=== PATIENT | female | born 1970 | race Caucasian/White ===

== ENCOUNTER 2018-09-21 01:26 | Emergency (ER) | payer MEDICAID ==
[2018-09-21 01:27] VITALS: BMI 21.3
[2018-09-21 01:40] VITALS: RESP 18
[2018-09-21] MEDS ORDERED: Aluminum Hydroxide/Magnesium Hydroxide Susp (30 mL) PO STA (02:11)
[2018-09-21] MEDS ORDERED: Sodium Chloride 0.9% 1,000 ML IV ONE (02:11)
[2018-09-21] MEDS ORDERED: Aluminum Hydroxide/Magnesium Hydroxide Susp (30 mL) ONE (02:35)
[2018-09-21 02:37] LABS: BASO % 0.4 % (0.0-2.0); EOS % 0.3 % (0.0-4.0); LYMPH # 0.8 K/uL (1.0-4.3); LYMPH % 7.3 % (20.0-40.0); MEAN CELL VOLUME 88.9 fL (81.0-99.0); MEAN CORPUSCULAR HEMOGLOBIN 29.5 pg (27.0-31.0); MEAN CORPUSCULAR HGB CONC 33.2 g/dL (33.0-37.0); MEAN PLATELET VOLUME 8.7 fL (7.2-11.7); MONO # 0.4 K/uL (0.0-0.8); MONO % 3.7 % (0.0-10.0); NEUT # 10.2 K/uL (1.8-7.0); NEUT % 88.3 % (50.0-75.0); PLATELET COUNT 267 K/uL (130-400); RED CELL DISTRIBUTION WIDTH 14.5 % (11.5-14.5); WHITE BLOOD COUNT 11.5 K/uL (4.8-10.8)
[2018-09-21 02:48] LABS: ALB/GLOB RATIO 1.3 (1.0-2.1); ALBUMIN 4.2 g/dL (3.5-5.0); ALT/SGPT 103 U/L (9-52); AST/SGOT 224 U/L (14-36); BLOOD UREA NITROGEN 20 mg/dL (7-17); CALCIUM 9.3 mg/dl (8.6-10.4); GFR NON-AFRICAN AMERICAN > 60; LIPASE 249 U/L (23-300)
[2018-09-21 02:56] LABS: SQUAMOUS EPITHIAL < 1 /hpf (0-5); URINE BACTERIA RARE (<OCC); URINE BILIRUBIN NEGATIVE (NEGATIVE); URINE BLOOD NEGATIVE (NEGATIVE); URINE CLARITY Clear (Clear); URINE COLOR Yellow (YELLOW); URINE GLUCOSE (UA) NORMAL (Normal); URINE LEUKOCYTE ESTERASE NEG Leu/uL (Negative); URINE PROTEIN NEGATIVE (NEGATIVE)
[2018-09-21 03:01] LABS: HCG,QUALITATIVE URINE NEGATIVE (NEGATIVE)
[2018-09-21] MEDS ORDERED: Lidocaine Hydrochloride 5 ML INJ ONE (03:32)
[2018-09-21 03:47] VITALS: BP 100/64; PULSE 92; TEMP 97.8; O2SAT 100
--- NOTE | 2018-09-21 03:54 | C.PDOC ---
History Of Present Illness 47 year old female presents to the ED for evaluation of moderate abdominal pain which began after eating pizza wand buffalo chicken tonight. Patient reports feeling a sharp pain to her epigastric and right upper quadrant regions. She also reports associated nausea and two episode of vomiting. Patient states her pain has improved from before, but she still has some discomfort and presents to the ED for further evaluation. She denies fever, chills, back pain, urinary symptoms and diarrhea. Time Seen by Provider: 09/21/18 02:11 Chief Complaint (Nursing): Abdominal Pain History Per: Patient History/Exam Limitations: no limitations Onset/Duration Of Symptoms: Hrs Current Symptoms Are (Timing): Still Present Location Of Pain/Discomfort: RUQ, Epigastric Quality Of Discomfort: "Pain" Associated Symptoms: Nausea, Vomiting. denies: Fever, Chills, Diarrhea, Urinary Symptoms Additional History Per: Patient Abnormal Vaginal Bleeding: No Past Medical History Reviewed: Historical Data, Nursing Documentation, Vital Signs Vital Signs: Last Vital Signs Temp 97.8 F 09/21/18 03:46 Pulse 92 H 09/21/18 03:46 Resp 18 09/21/18 03:46 BP 100/64 09/21/18 03:46 Pulse Ox 100 09/21/18 03:46 - Medical History PMH: HTN Denies: Depression Surgical History: Cholecystectomy - [facility] Procedures LAPAROSCOPIC CHOLECYSTECTOMY (02/06/13) Family History: States: Unknown Family Hx - Social History Hx Tobacco Use: No Hx Alcohol Use: No Hx Substance Use: No - Immunization History Hx Tetanus Toxoid Vaccination: No Hx Influenza Vaccination: No Hx Pneumococcal Vaccination: No Review Of Systems Constitutional: Negative for: Fever, Chills Gastrointestinal: Positive for: Nausea, Vomiting, Abdominal Pain (epigastric and right upper quadrant ). Negative for: Diarrhea Genitourinary: Negative for: Dysuria, Frequency, Hematuria Musculoskeletal: Negative for: Back Pain Physical Exam - Physical Exam Appears: Non-toxic, No Acute Distress Skin: Normal Color, Warm, Dry Head: Atraumatic, Normacephalic Eye(s): bilateral: Normal Inspection Oral Mucosa: Moist Neck: Supple Chest: Symmetrical, No Deformity, No Tenderness Cardiovascular: Rhythm Regular, No Murmur Respiratory: Normal Breath Sounds, No Rales, No Rhonchi, No Wheezing Gastrointestinal/Abdominal: Bowel Sounds (normal in all quadrants ), Soft, Tenderness (mild, epigastric ), No Guarding, No Rebound, Other (no tenderness in right upper quadrant, negative Brady's sign ) Extremity: Normal ROM, Capillary Refill (less than 2 seconds ) Neurological/Psych: Normal Speech, Normal Cognition Gait: Steady ED Course And Treatment - Laboratory Results Result Diagrams: 09/21/18 02:33 09/21/18 02:33 Lab Results: Total Bilirubin 0.5 mg/dL (0.2-1.3) 09/21/18 02:33 AST 224 U/L (14-36) H 09/21/18 02:33 ALT 103 U/L (9-52) H 09/21/18 02:33 Alkaline Phosphatase 84 U/L (38-126) 09/21/18 02:33 Total Protein 7.3 g/dL (6.3-8.3) 09/21/18 02:33 Albumin 4.2 g/dL (3.5-5.0) 09/21/18 02:33 Globulin 3.1 gm/dL (2.2-3.9) 09/21/18 02:33 Albumin/Globulin Ratio 1.3 (1.0-2.1) 09/21/18 02:33 Lipase 249 U/L (23-300) 09/21/18 02:33 Urine Color Yellow (YELLOW) 09/21/18 02:33 Urine Clarity Clear (Clear) 09/21/18 02:33 Urine pH 6.0 (5.0-8.0) 09/21/18 02:33 Ur Specific [place] 1.020 (1.003-1.030) 09/21/18 02:33 Urine Protein Negative mg/dL (NEGATIVE) 09/21/18 02:33 Urine Glucose (UA) Normal mg/dL (Normal) 09/21/18 02:33 Urine Ketones Negative mg/dL (NEGATIVE) 09/21/18 02:33 Urine Blood Negative (NEGATIVE) 09/21/18 02:33 Urine Nitrate Negative (NEGATIVE) 09/21/18 02:33 Urine Bilirubin Negative (NEGATIVE) 09/21/18 02:33 Urine Urobilinogen 2.0 mg/dL (0.2-1.0) H 09/21/18 02:33 Ur Leukocyte Esterase Neg Denys/uL (Negative) 09/21/18 02:33 Urine WBC (Auto) < 1 /hpf (0-5) 09/21/18 02:33 Urine RBC (Auto) 2 /hpf (0-3) 09/21/18 02:33 Ur Squamous Epith Cells < 1 /hpf (0-5) 09/21/18 02:33 Urine Bacteria Rare (<OCC) 09/21/18 02:33 Urine HCG, Qual Negative (NEGATIVE) 09/21/18 02:33 Urine HCG, Qual Negative (NEGATIVE) 09/21/18 02:33 O2 Sat by Pulse Oximetry: 100 (on RA) Pulse Ox Interpretation: Normal Progress Note: Bloodwork, urinalysis, Obstructive series abdomen ordered and reviewed. Pt refused XR. Maalox PO, Pepcid IVP, Zofran IVP and IV Fluids given. On reassessment, patient is resting comfortably, tolerating PO intake, showing no signs of distress and reports an improvement in her symptoms. Patient is stable for discharge, and is advised to f/u with her PMD within 1-2 days for further evaluation. Disposition Counseled Patient/Family Regarding: Diagnosis, Need For Followup, Rx Given - Disposition Referrals: [facility] [Outside] Curly Chaudhari MD, V [Non-Staff] - Disposition: HOME/ ROUTINE Disposition Time: 03:51 Condition: STABLE Additional Instructions: Avoid spicy, greasy foods Follow up with PMD for reeval and possible referral for RUQ sonogram Take zantac as needed if epibastric pain Return to ER if severe pain, vomiting, diarrhea or worse Prescriptions: Ranitidine HCl [Zantac] 300 mg PO DAILY #20 tablet Instructions: Acute Abdomen (Belly Pain), Adult (DC), Gastritis (DC) Forms: [employer] (Kinyarwanda) - Clinical Impression Clinical Impression: Epigastric abdominal pain - PA / BAND MANAGER / Resident Statement MD/DO has reviewed & agrees with the documentation as recorded. - Scribe Statement The provider has reviewed the documentation as recorded by the Scribe (Felisha connolly) All medical record entries made by the Scribe were at my direction and personally dictated by me. I have reviewed the chart and agree that the record accurately reflects my personal performance of the history, physical exam, medical decision making, and the department course for this patient. I have also personally directed, reviewed, and agree with the discharge instructions and disposition.
[2018-09-21 04:19] LABS: BANDS 3 % (0-2); LYMPHOCYTE 8 % (20-40); MONOCYTE 3 % (0-10); NEUTROPHIL 86 % (50-75); PLATELET ESTIMATE NORMAL (NORMAL); TOTAL CELLS COUNTED 100
== END 2018-09-21 04:01 | disposition home or self-care (01) ==
LOC: C.ER 01:26
DX: R10.13 Epigastric pain (principal)
CPT/HCPCS: 80053; 81001; 83690; 84703; 85025; 96361; 96374; 96375; 99284; J2405; J7030

== ENCOUNTER 2018-09-28 07:53 | Emergency (ER) | payer MEDICAID ==
[2018-09-28 08:01] VITALS: RESP 18; BMI 22.7
[2018-09-28 08:39] LABS: BASO % 0.7 % (0.0-2.0); HEMOGLOBIN 13.4 g/dL (11.0-16.0); LYMPH # 1.4 K/uL (1.0-4.3); LYMPH % 28.1 % (20.0-40.0); MEAN CELL VOLUME 89.5 fL (81.0-99.0); MEAN CORPUSCULAR HEMOGLOBIN 30.1 pg (27.0-31.0); MEAN CORPUSCULAR HGB CONC 33.6 g/dL (33.0-37.0); MEAN PLATELET VOLUME 8.5 fL (7.2-11.7); MONO # 0.3 K/uL (0.0-0.8); MONO % 6.2 % (0.0-10.0); NEUT # 3.2 K/uL (1.8-7.0); RBC 4.44 Mil/uL (3.80-5.20); RED CELL DISTRIBUTION WIDTH 14.4 % (11.5-14.5)
[2018-09-28 08:42] LABS: WHITE BLOOD COUNT 5.1 K/uL (4.8-10.8)
[2018-09-28 08:50] LABS: SQUAMOUS EPITHIAL 1 /hpf (0-5); URINE BACTERIA RARE (<OCC); URINE BILIRUBIN NEGATIVE (NEGATIVE); URINE BLOOD 2+ (NEGATIVE); URINE CLARITY Hazy (Clear); URINE COLOR Yellow (YELLOW); URINE GLUCOSE (UA) NORMAL (Normal); URINE LEUKOCYTE ESTERASE NEG Leu/uL (Negative); URINE PROTEIN NEGATIVE (NEGATIVE); URINE UROBILINOGEN NORMAL mg/dL (0.2-1.0)
[2018-09-28 08:55] LABS: ALB/GLOB RATIO 1.5 (1.0-2.1); ALBUMIN 4.7 g/dL (3.5-5.0); ALT/SGPT 206 U/L (9-52); AST/SGOT 38 U/L (14-36); BLOOD UREA NITROGEN 14 mg/dL (7-17); CALCIUM 9.3 mg/dl (8.6-10.4); GFR NON-AFRICAN AMERICAN > 60; LIPASE 93 U/L (23-300)
[2018-09-28] MEDS ORDERED: Iohexol 300 100 ML IJ ONE (09:09)
--- NOTE | 2018-09-28 10:10 | CT ---
Date of service: 09/28/2018 PROCEDURE: CT Abdomen and Pelvis with Oral contrast. HISTORY: Right-sided abdominal pain COMPARISON: Correlation made with abdominal ultrasound obtained earlier same day. Comparison also made with MRI pelvis 11/18/2013. TECHNIQUE: Contiguous axial images of the abdomen and pelvis performed following intravenous injection of approximately 100 cc Omnipaque 300 contrast material. Additional 2D sagittal and coronal reformats generated. Radiation dose: Total exam DLP = 489.78 mGy-cm. This CT exam was performed using one or more of the following dose reduction techniques: Automated exposure control, adjustment of the mA and/or kV according to patient size, and/or use of iterative reconstruction technique. FINDINGS: LOWER THORAX: Heart size within range of normal. No significant pericardial effusion. Small hiatal hernia. LIVER: Liver is upper limits of normal measuring nearly 18 cm in CC dimension.. Liver demonstrates a mild a fatty hepatic infiltration. GALLBLADDER AND BILE DUCTS: Cholecystectomy. PANCREAS: Unremarkable. No mass. No ductal dilatation. SPLEEN: Unremarkable. No splenomegaly. ADRENALS: No adrenal lesions. KIDNEYS AND URETERS: Unremarkable. No stone or hydronephrosis. BLADDER: Urinary bladder incompletely distended which may in part account for thick-walled appearance. Correlation with urinalysis to exclude cystitis. REPRODUCTIVE: There is a 2 cm x 1.4 cm elliptical shaped low-attenuation focus in the left adnexal region that could represent a proteinaceous cyst. APPENDIX: Normal appendix BOWEL: Stomach is incompletely distended. Visualized loops of small bowel exhibit normal contour and caliber. There does appear to be fecalized content within multiple loops of small bowel suggesting mild fecal stasis. PERITONEUM: Unremarkable. No fluid collection. No free air. Small fat containing umbilical hernia LYMPH NODES: Unremarkable. No enlarged lymph nodes. VASCULATURE: Unremarkable. No aortic aneurysm. No aortic atherosclerotic calcification or mural plaque present. BONES: No fracture or destructive lesion. OTHER FINDINGS: None. IMPRESSION: Cholecystectomy. Mild fatty hepatic infiltration. Questionable small of proteinaceous left adnexal cyst.
--- NOTE | 2018-09-28 11:09 | C.PDOC ---
History Of Present Illness 47 year old female presents to ED with complaint of abnormal labs. Patient had blood work done at her PMD's office and LFT's were elevated. Repeat blood work was done and LFT's were more elevated. Patient was last see in the ED at the end of August for complaint of right sided abdominal pain. She has a past surgical history of cholecystectomy. Patient denies experiencing any pain. Patient denies nausea, vomiting, and diarrhea. Time Seen by Provider: 09/28/18 08:04 Chief Complaint (Nursing): Abnormal Labs History Per: Patient History/Exam Limitations: no limitations Onset/Duration Of Symptoms: Hrs Current Symptoms Are (Timing): Still Present Severity: None Recent travel outside of the [place]: No Additional History Per: Patient, Prior Records Past Medical History Reviewed: Historical Data, Nursing Documentation, Vital Signs Vital Signs: Last Vital Signs Temp 98.4 F 09/28/18 08:00 Pulse 97 H 09/28/18 08:00 Resp 18 09/28/18 08:00 BP 153/94 H 09/28/18 08:00 Pulse Ox 100 09/28/18 08:00 - Medical History PMH: HTN Denies: Depression Surgical History: Cholecystectomy - [facility] Procedures LAPAROSCOPIC CHOLECYSTECTOMY (02/06/13) Family History: States: Unknown Family Hx - Social History Hx Tobacco Use: No Hx Alcohol Use: No Hx Substance Use: No - Immunization History Hx Tetanus Toxoid Vaccination: No Hx Influenza Vaccination: No Hx Pneumococcal Vaccination: No Review Of Systems Constitutional: Negative for: Fever, Chills, Weakness Gastrointestinal: Negative for: Nausea, Vomiting, Abdominal Pain, Diarrhea Neurological: Negative for: Weakness, Numbness, Dizziness Physical Exam - Physical Exam Appears: Well, Non-toxic, No Acute Distress Skin: Normal Color, Warm, Dry Head: Atraumatic, Normacephalic Neck: Normal ROM, Supple Chest: Symmetrical, No Deformity Cardiovascular: Rhythm Regular, No Murmur Respiratory: No Accessory Muscle Use Gastrointestinal/Abdominal: Soft, No Tenderness Neurological/Psych: Oriented x3, Normal Speech, Normal Cognition ED Course And Treatment - Laboratory Results Result Diagrams: 09/28/18 08:15 09/28/18 08:15 Lab Results: Total Bilirubin 0.6 mg/dL (0.2-1.3) 09/28/18 08:15 AST 38 U/L (14-36) H D 09/28/18 08:15 ALT 206 U/L (9-52) H D 09/28/18 08:15 Alkaline Phosphatase 86 U/L (38-126) 09/28/18 08:15 Total Protein 7.9 g/dL (6.3-8.3) 09/28/18 08:15 Albumin 4.7 g/dL (3.5-5.0) 09/28/18 08:15 Globulin 3.2 gm/dL (2.2-3.9) 09/28/18 08:15 Albumin/Globulin Ratio 1.5 (1.0-2.1) 09/28/18 08:15 Lipase 93 U/L (23-300) 09/28/18 08:15 Urine Color Yellow (YELLOW) 09/28/18 08:15 Urine Clarity Hazy (Clear) 09/28/18 08:15 Urine pH 5.0 (5.0-8.0) 09/28/18 08:15 Ur Specific [place] 1.023 (1.003-1.030) 09/28/18 08:15 Urine Protein Negative mg/dL (NEGATIVE) 09/28/18 08:15 Urine Glucose (UA) Normal mg/dL (Normal) 09/28/18 08:15 Urine Ketones Negative mg/dL (NEGATIVE) 09/28/18 08:15 Urine Blood 2+ (NEGATIVE) H 09/28/18 08:15 Urine Nitrate Negative (NEGATIVE) 09/28/18 08:15 Urine Bilirubin Negative (NEGATIVE) 09/28/18 08:15 Urine Urobilinogen Normal mg/dL (0.2-1.0) 09/28/18 08:15 Ur Leukocyte Esterase Neg Denys/uL (Negative) 09/28/18 08:15 Urine WBC (Auto) 1 /hpf (0-5) 09/28/18 08:15 Urine RBC (Auto) 13 /hpf (0-3) H 09/28/18 08:15 Ur Squamous Epith Cells 1 /hpf (0-5) 09/28/18 08:15 Urine Bacteria Rare (<OCC) 09/28/18 08:15 Urine HCG, Qual Negative (NEGATIVE) 09/28/18 08:40 Urine HCG, Qual Negative (NEGATIVE) 09/28/18 08:40 O2 Sat by Pulse Oximetry: 100 (in RA) - CT Scan/US Abdomen/Pelvis CT Other Rad Studies (CT/US): Interpreted By Me, Read By Radiologist CT/US Interpretation: No acute findings. Abdominal US Other Rad Studies (CT/US): Interpreted By Me, Read By Radiologist CT/US Interpretation: IMPRESSION: Cholecystectomy. Progress Note: Patient's labs show elevated LFT's. Recommened gastroenterology follow up. Medical Decision Making Medical Decision Making: Impression: 47 year old female with elevated LFT's Plan: CT Abdomen/ Pelvis and Abdominal US ordered for patient Labs ordered with urine culture and UA for patient Disposition Counseled Patient/Family Regarding: Studies Performed, Diagnosis, Need For Followup - Disposition Disposition: HOME/ ROUTINE Disposition Time: 11:08 Condition: STABLE Additional Instructions: Gastroenterolgy follow up Instructions: Abdominal Ultrasound, Acute Abdomen (Belly Pain), Adult (DC) Forms: [employer] (Welsh) - POA Present On Arrival: None - Clinical Impression Clinical Impression: Elevated LFTs - Scribe Statement The provider has reviewed the documentation as recorded by the Scribe (Lacy Hensley) All medical record entries made by the Scribe were at my direction and personally dictated by me. I have reviewed the chart and agree that the record accurately reflects my personal performance of the history, physical exam, medical decision making, and the department course for this patient. I have also personally directed, reviewed, and agree with the discharge instructions and disposition.
--- NOTE | 2018-09-28 11:25 | US ---
Date of service: 09/28/2018 HISTORY: abd pain/ elevated LFT/ s//p cholecytectomy COMPARISON: None. TECHNIQUE: Sonographic evaluation of the abdomen. FINDINGS: LIVER: Measures 17.1 cm. Normal echogenicity of the liver parenchyma. No mass. No intrahepatic bile duct dilatation. GALLBLADDER: Cholecystectomy COMMON BILE DUCT: Measures 4.0 mm. No stones. No dilatation. PANCREAS: Unremarkable as visualized. No mass. No ductal dilatation. RIGHT KIDNEY: Measures 11.6 x 4.2 x 4.9cm. Normal echogenicity. No calculus, mass, or hydronephrosis. LEFT KIDNEY: Measures 11.9 x 4.8 x 4.8cm. Normal echogenicity. No calculus, mass, or hydronephrosis. SPLEEN: Normal in size and contour. No mass. AORTA: No aneurysmal dilatation. IVC: Unremarkable. OTHER FINDINGS: None. IMPRESSION: Cholecystectomy.
[2018-09-28 11:35] VITALS: BP 131/85; PULSE 87; TEMP 98
[2018-09-28 11:58] VITALS: O2SAT 100
== END 2018-09-28 11:35 | disposition home or self-care (01) ==
LOC: C.ER 07:53
DX: R79.89 Other specified abnormal findings of blood chemistry (principal); I10 Essential (primary) hypertension
CPT/HCPCS: 74177; 76700; 80053; 81001; 83690; 84703; 85025; 87086; 99283; Q9967